=== PATIENT | male | born 1970 | race Caucasian/White ===

== ENCOUNTER 2020-10-31 09:56 | Day surgery (SDC) | payer BC ==
[~2020-10-31 09:56] MED LIST: Bupivacaine 0.5% 50 ML MDV ONE; Lidocaine 1% with EPINEPHrine 1:100,000 50 ML MDV ONE; Midazolam 1 MG/ML 2 ML SDV ONE; Propofol 200 MG/20 ML SDV ONE; fentaNYL 100 MCG/2 ML SDV ONE
[2020-10-31] MEDS ORDERED: Sodium Chloride 0.9% 1,000 ML IV SCH (11:00)
[2020-10-31] MEDS ORDERED: metroNIDAZOLE/Normal Saline 500 MG in Premix Bag 1 BAG IV ONE (11:00)
[2020-10-31] MEDS ORDERED: ceFAZolin 2 GM in Premix Bag 1 BAG IV ONE (11:00)
[2020-10-31] MEDS ORDERED: Propofol 200 MG/20 ML SDV ONE ×2 (11:02→11:20)
[2020-10-31] MEDS ORDERED: Ketorolac 30 MG/ML SDV ONE (11:13)
[2020-10-31] MEDS ORDERED: Lidocaine 1% with EPINEPHrine 1:100,000 50 ML MDV INJECT ONE ×2 (11:17→11:35)
[2020-10-31] MEDS ORDERED: Bupivacaine 0.5% 50 ML MDV INJECT ONE ×2 (11:17→11:35)
[2020-10-31] MEDS ORDERED: hydrOXYzine HCL 100 MG/2 ML SDV IM ONE (12:05)
[2020-10-31] MEDS ORDERED: Acetaminophen/HYDROcodone 325-5 MG Tab PO PRN (12:35)
--- NOTE | 2020-11-15 09:09 | OR ---
DATE OF PROCEDURE: 10/31/2020 SURGEON: Eloy Pacheco MD PROCEDURE PERFORMED: Open left inguinal hernia repair, incarcerated, not strangulated. COMPLICATIONS: None. GOVERNMENT RELATIONS ANALYST: None. ANESTHESIA: MAC. PREOPERATIVE DIAGNOSIS: Inguinal hernia. POSTOPERATIVE DIAGNOSIS: Inguinal hernia. RISKS: Risks, benefits, alternatives, and limitations including, but not limited to infection, bleeding, chronic wounds, chronic pain, sterility, loss of vascular supply to testicle, and other risks not listed here. The patient understands these risks and wishes to proceed. PROCEDURE IN DETAIL: The patient was placed in supine position. The left inguinal hernia area was identified first. A curvilinear incision was made with a 15 blade. This was then carried down with electrocautery to the external oblique aponeurosis. This was opened sharply with a 15 blade. Subsequently, the external oblique aponeurosis was then enlarged using Metzenbaum scissors. A Zeigler drain was then used to surround the cord structure and the hernia. The hernia was noted to be incarcerated, non-strangulated. This was able to be bluntly dissected from the cord structures and subsequently deflected into the abdominal cavity as this was an indirect inguinal hernia. An extra-large plug and patch system was then placed. This was sewed into place in addition with tacking device. Careful attention was used not to place a tacker in proximity to any vascular structure. The fixation points were approximately every 5 mm to 1 cm. The tails were tied around the cord structure. This was irrigated. The external oblique aponeurosis was then closed with 3-0 Vicryl running sutures. Subcutaneous tissue was closed with 3-0 Vicryl, and skin was closed with 4-0 Vicryl. Dermabond was applied. The patient tolerated the procedure well. Eloy Pacheco MD /[id number]
--- NOTE | 2020-11-15 09:18 | OR ---
DATE OF PROCEDURE: 10/31/2020 SURGEON: Eloy Pacheco MD PROCEDURES: 1. Bilateral transversus abdominis plane block. 2. Bilateral rectus sheath blocks. COMPLICATION: None. TERMITE EXTERMINATOR: None. RISKS: Risks, benefits, alternatives, and limitations including, but not limited to infection, bleeding, and injury to abdominal structures were explained to the patient and wished to proceed. PROCEDURE IN DETAIL: The patient was placed in supine position. The right transversus plane was addressed first. This was accessed using 18-gauge needle under direct ultrasound guidance with a 13 megahertz probe. 20% of the solution was injected under direct visualization. This was then performed on the other side. Bilateral rectus sheaths were also injected with 20% of the solution respectively also under direct visualization. At no point during these 4 injections was the needle blindly advanced. All 4 procedures were performed using same manner, same fashion, same technique in the same sequence using the same equipment. The patient tolerated the procedure well. Eloy Pacheco MD /[id number]
== END 2020-10-31 14:39 | disposition home or self-care (01) ==
LOC: JP.SDS 09:56
PROVIDERS: ATTEND Surgery
DX: K40.30 Unilateral inguinal hernia, with obstruction, without gangrene, not specified as recurrent (principal); E78.5 Hyperlipidemia, unspecified; K21.9 Gastro-esophageal reflux disease without esophagitis; E66.9 Obesity, unspecified
CPT/HCPCS: 49507; A9270; C1713; C1781; J0171; J0690; J1100; J1885; J2250; J2704; J2795; J3010; J3410; J3490; J7030

== ENCOUNTER 2021-12-16 08:08 | Day surgery (SDC) | payer BC ==
[2021-12-16] MEDS ORDERED: fentaNYL 100 MCG/2 ML SDV ONE (08:33)
[2021-12-16] MEDS ORDERED: Propofol 200 MG/20 ML SDV ONE (08:33)
[2021-12-16] MEDS ORDERED: Midazolam 1 MG/ML 2 ML SDV ONE (08:33)
[2021-12-16] MEDS ORDERED: Lactated Ringers 1,000 ML IV SCH (08:45)
== END 2021-12-16 11:55 | disposition home or self-care (01) ==
LOC: JP.SDS 08:08
PROVIDERS: ATTEND Family Medicine
DX: Z12.11 Encounter for screening for malignant neoplasm of colon (principal); D12.3 Benign neoplasm of transverse colon; D12.4 Benign neoplasm of descending colon; I10 Essential (primary) hypertension
CPT/HCPCS: 45380; J2250; J2704; J3010; J7120